=== PATIENT | female | born 1950 | race Caucasian/White ===

== ENCOUNTER → 2018-01-24 08:45 | Outpatient (CLI) | payer BC, SELFPAY ==
--- NOTE | 2018-01-24 08:49 | DI.RAD.S_ITS ---
PROCEDURE: XR CHEST 2V INDICATIONS: 67 year-old female with cough. TECHNIQUE: 2 views of the chest were acquired. COMPARISON: None. FINDINGS: Surgical changes and devices: Patient is status post left breast lumpectomy and axillary lymph node dissection. Lungs and pleura: No pleural effusions or pneumothorax. Lungs are clear. Mediastinum: Mediastinal contours are normal. Heart size is normal. Bones and chest wall: No suspicious bony abnormalities. Soft tissues appear unremarkable. IMPRESSION: No acute cardiopulmonary disease. Dictated by: Carlos Montalvo M.D. on 01/24/2018 at 9:03 Approved by: Carlos Montalvo M.D. on 01/24/2018 at 9:03
== END ==
PROVIDERS: Visit Provider Physician Assistant
DX: J06.9 Acute upper respiratory infection, unspecified (principal); R05 Cough
CPT/HCPCS: 71046